=== PATIENT | male | born 1960 | race Caucasian/White ===

== ENCOUNTER 2018-06-24 12:52 | Emergency (ER) | payer BC ==
[2018-06-24 12:59] VITALS: RESP 18
[2018-06-24] MEDS ORDERED: LABETALOL SYRINGE 5 MG/ML IVP STA (13:33)
[2018-06-24 14:07] LABS: Basophils % (A) 1 %; Eosinophils # (A) 0.2 k/uL (0-0.7); Eosinophils % (A) 4 %; HCT 49.4 % (39.0-53.0); Lymphocytes # (A) 1.1 k/uL (1.0-4.8); Lymphocytes % (A) 22 %; MCH 31.9 pg (25.0-35.0); MCHC 34.4 g/dL (31.0-37.0); MCV 92.9 fL (80.0-100.0); Mean Platelet Volume 7.9; Monocytes # (A) 0.3 k/uL (0-1.0); Monocytes % (A) 7 %; Neutrophils # (A) 3.3 k/uL (1.3-7.7); Neutrophils % (A) 65 %; Platelet Count 142 k/uL (150-450); RBC 5.32 m/uL (4.30-5.90); RDW 12.6 % (11.5-15.5); WBC 5.1 k/uL (3.8-10.6)
[2018-06-24 14:23] LABS: ALT 37 U/L (21-72); AST 30 U/L (17-59); Albumin 3.9 g/dL (3.5-5.0); Alkaline Phosphatase 56 U/L (38-126); Anion Gap 8 mmol/L; Blood Urea Nitrogen 23 mg/dL (9-20); Calcium 9.9 mg/dL (8.4-10.2); Carbon Dioxide 21 mmol/L (22-30); Chloride 110 mmol/L (98-107); Glucose 104 mg/dL (74-99); Potassium 4.6 mmol/L (3.5-5.1); Sodium 139 mmol/L (137-145); Total Bilirubin 0.8 mg/dL (0.2-1.3); Total Protein 6.9 g/dL (6.3-8.2)
[2018-06-24 14:25] LABS: Appearance,Urine Clear (Clear); Bilirubin,Urine Negative (Negative); Blood,Urine Negative (Negative); Color,Urine Yellow; Glucose,Urine (UA) Negative (Negative); Ketones,Urine Negative (Negative); Leukocyte Esterase,Urine Negative (Negative); Nitrite,Urine Negative (Negative); Protein,Urine Negative (Negative); Specific Gravity,Urine 1.019 (1.001-1.035)
--- NOTE | 2018-06-24 14:26 | XR ---
EXAMINATION TYPE: XR chest 2V DATE OF EXAM: 06/24/2018 COMPARISON: NONE HISTORY: Hypertension with chest pain. TECHNIQUE: Frontal and lateral views of the chest are obtained. FINDINGS: There is suspected mild underlying emphysematous change with patchy left basilar linear sca rring and/or atelectasis. There is no suspicious focal air space opacity, pleural effusion, or pneumo thorax seen. The cardiac silhouette size is within normal limits with atherosclerotic change in aort ic knob. The osseous structures are intact. IMPRESSION: No acute cardiopulmonary process.
[2018-06-24] MEDS ORDERED: amLODIPine 5 MG TAB PO STA (15:09)
--- NOTE | 2018-06-24 15:16 | ED ---
General Adult HPI - General Chief complaint: Recheck/Abnormal Lab/Rx Stated complaint: HYPERTENSION Time Seen by Provider: 06/24/18 13:11 Source: patient, RN notes reviewed Mode of arrival: ambulatory Limitations: no limitations - History of Present Illness Initial comments: 57-year-old male presents to the emergency department for a chief complaint of high blood pressure. Patient states he was seen by his primary care provider yesterday and given losartan 50 mg. Patient states that today he was at the dentist and his blood pressure was too high for them to the procedure. He called his primary recommended he come to the emergency department. Patient states he is feeling his normal self. He denies any headache, chest pain, shortness of breath, abdominal pain, back pain, dizziness. Patient states he feels absolutely fine and is only here because his primary care told him to come. Patient has no other complaints at this time including shortness of breath , chest pain, abdominal pain, nausea or vomiting, headache, or visual changes. - Related Data Home Medications Medication Instructions Recorded Confirmed Ibuprofen [Motrin] 800 mg PO DAILY PRN 06/24/18 06/24/18 Losartan Potassium 50 mg PO DAILY 06/24/18 06/24/18 Previous Rx's Medication Instructions Recorded amLODIPine [Norvasc] 5 mg PO DAILY #12 tab 06/24/18 Allergies Allergy/AdvReac Type Severity Reaction Status Date / Time No Known Allergies Allergy Verified 06/24/18 12:59 Review of Systems ROS Statement: Those systems with pertinent positive or pertinent negative responses have been documented in the HPI. ROS Other: All systems not noted in ROS Statement are negative. Past Medical History Past Medical History: Hypertension History of Any Multi-Drug Resistant Organisms: None Reported Past Surgical History: Hernia Repair Past Psychological History: No Psychological Hx Reported Smoking Status: Former smoker Past Alcohol Use History: Occasional Past Drug Use History: Marijuana General Exam Limitations: no limitations General appearance: alert, in no apparent distress Head exam: Present: atraumatic, normocephalic, normal inspection Eye exam: Present: normal appearance, PERRL, EOMI. Absent: scleral icterus, conjunctival injection, periorbital swelling ENT exam: Present: normal exam, normal oropharynx, mucous membranes moist, normal external ear exam Neck exam: Present: normal inspection, full ROM. Absent: tenderness, meningismus, lymphadenopathy Respiratory exam: Present: normal lung sounds bilaterally. Absent: respiratory distress, wheezes, rales, rhonchi, stridor Cardiovascular Exam: Present: regular rate, normal rhythm, normal heart sounds. Absent: systolic murmur, diastolic murmur, rubs, gallop, clicks Neurological exam: Present: alert, oriented X3, CN II-XII intact Psychiatric exam: Present: normal affect, normal mood Course Vital Signs 06/24/18 06/24/18 06/24/18 12:56 14:01 14:08 Temperature 97.9 F Pulse Rate 77 71 Respiratory 18 18 Rate Blood Pressure 206/114 195/99 160/99 O2 Sat by Pulse 98 93 L Oximetry 06/24/18 06/24/18 06/24/18 15:14 16:03 16:15 Temperature 98.3 F Pulse Rate 64 58 L Respiratory 18 18 Rate Blood Pressure 167/97 155/97 O2 Sat by Pulse 93 L 95 Oximetry Medical Decision Making - Medical Decision Making 57-year-old male presents to the emergency department for a chief complaint of hypertension. Patient was started on losartan yesterday. He denies any symptoms stating he is only here because his primary care told him to come when he called him. Patient unsure why his blood pressure was at the dentist office. Patient is asymptomatic. CBC CMP unremarkable. Urine negative. Chest x-ray shows no acute cardiopulmonary process but there is mild underlying erythematous changes. Patient was given labetalol. Pressure initially 206/114 which did decrease consistently to 155/97. Apparently losartan has a recall, patient was given Norvasc instead. Discussed taking 5 mg daily and if patient has high blood pressure later in the day after one dose he can take 2 doses. Discussed follow-up with primary care as soon as he is able. Discussed returning here if he has any symptoms such as headache, chest pain, shortness of breath, abdominal pain, or back pain. Patient agrees with this and states he is ready to go home. - Lab Data Result diagrams: 06/24/18 13:48 06/24/18 13:48 Lab Results 06/24/18 06/24/18 06/24/18 Range/Units 13:48 13:48 13:56 WBC 5.1 (3.8-10.6) k/uL RBC 5.32 (4.30-5.90) m/uL Hgb 17.0 (13.0-17.5) gm/dL Hct 49.4 (39.0-53.0) % MCV 92.9 (80.0-100.0) fL MCH 31.9 (25.0-35.0) pg MCHC 34.4 (31.0-37.0) g/dL RDW 12.6 (11.5-15.5) % Plt Count 142 L (150-450) k/uL Neutrophils % 65 % Lymphocytes % 22 % Monocytes % 7 % Eosinophils % 4 % Basophils % 1 % Neutrophils # 3.3 (1.3-7.7) k/uL Lymphocytes # 1.1 (1.0-4.8) k/uL Monocytes # 0.3 (0-1.0) k/uL Eosinophils # 0.2 (0-0.7) k/uL Basophils # 0.0 (0-0.2) k/uL Sodium 139 (137-145) mmol/L Potassium 4.6 (3.5-5.1) mmol/L Chloride 110 H (98-107) mmol/L Carbon Dioxide 21 L (22-30) mmol/L Anion Gap 8 mmol/L BUN 23 H (9-20) mg/dL Creatinine 0.97 (0.66-1.25) mg/dL Est GFR (CKD-EPI)AfAm >90 (>60 ml/min/1.73 sqM) Est GFR (CKD-EPI)NonAf 86 (>60 ml/min/1.73 sqM) Glucose 104 H (74-99) mg/dL Calcium 9.9 (8.4-10.2) mg/dL Total Bilirubin 0.8 (0.2-1.3) mg/dL AST 30 (17-59) U/L ALT 37 (21-72) U/L Alkaline Phosphatase 56 (38-126) U/L Total Protein 6.9 (6.3-8.2) g/dL Albumin 3.9 (3.5-5.0) g/dL Urine Color Yellow Urine Appearance Clear (Clear) Urine pH 6.0 (5.0-8.0) Ur Specific Bailey 1.019 (1.001-1.035) Urine Protein Negative (Negative) Urine Glucose (UA) Negative (Negative) Urine Ketones Negative (Negative) Urine Blood Negative (Negative) Urine Nitrite Negative (Negative) Urine Bilirubin Negative (Negative) Urine Urobilinogen 2.0 (<2.0) mg/dL Ur Leukocyte Esterase Negative (Negative) Disposition Clinical Impression: Hypertension Disposition: HOME SELF-CARE Condition: Good Additional Instructions: Please follow up with primary care in 1-2 days. Please return to the emergency department if you have any chest pain, headache, shortness of breath, abdominal pain or any other symptoms. Prescriptions: amLODIPine [Norvasc] 5 mg PO DAILY #12 tab Is patient prescribed a controlled substance at d/c from ED?: No Referrals: Ariel Morfin MD [Primary Care Provider] - 1-2 days Time of Disposition: 15:18
[2018-06-24] MEDS ORDERED: hydrALAZINE HCL 20 MG/ML 1 ML VIAL IVP STA ×2 (15:31→15:35)
[2018-06-24 16:06] VITALS: BP 155/97; PULSE 58
[2018-06-24 16:17] VITALS: TEMP 98.3
== END 2018-06-24 16:21 | disposition home or self-care (01) ==
LOC: EC 12:52
DX: I10 Essential (primary) hypertension (principal); R91.8 Other nonspecific abnormal finding of lung field; Z87.891 Personal history of nicotine dependence; Z79.899 Other long term (current) drug therapy; Z53.8 Procedure and treatment not carried out for other reasons
CPT/HCPCS: 36415; 71046; 80053; 81003; 85025; 93005; 96374; 99284

== ENCOUNTER 2018-07-21 09:14 | Inpatient (IN) | payer BC ==
[~2018-07-21 09:14] MED LIST: LIDOCAINE 1% INJ 10MG/ML (20 ML MDV) ONE; MIDAZOLAM 2 MG/2 ML VIAL ONE; PROPOFOL 10 MG/ML 20 ML VIAL IV ONE; fentaNYL (PF) 50 MCG/ML 2 ML AMP ONE
--- NOTE | 2018-07-21 09:47 | ED ---
General Adult HPI - General Chief complaint: Extremity Injury, Lower Stated complaint: LEG PAIN, FALL Time Seen by Provider: 07/21/18 09:22 Source: patient, RN notes reviewed Mode of arrival: wheelchair Limitations: no limitations - History of Present Illness Initial comments: 57-year-old male presents emergency Department with chief complaint of fall, right ankle injury. Patient states she was walking in his driveway slipped on some ice. Patient states that he twisted his ankle and felt it snap. Patient states he cannot get his boot off. Patient denies any head injury no loss conscious. Patient does not have a current orthopedic doctor denies any prior right foot and ankle injuries. - Related Data Home Medications Medication Instructions Recorded Confirmed Ibuprofen [Motrin] 800 mg PO DAILY PRN 06/24/18 07/21/18 Previous Rx's Medication Instructions Recorded amLODIPine [Norvasc] 5 mg PO DAILY #12 tab 06/24/18 Allergies Allergy/AdvReac Type Severity Reaction Status Date / Time No Known Allergies Allergy Verified 07/21/18 09:59 Review of Systems ROS Statement: Those systems with pertinent positive or pertinent negative responses have been documented in the HPI. ROS Other: All systems not noted in ROS Statement are negative. Past Medical History Past Medical History: Hypertension History of Any Multi-Drug Resistant Organisms: None Reported Past Surgical History: Hernia Repair Past Psychological History: No Psychological Hx Reported Smoking Status: Former smoker Past Alcohol Use History: Occasional Past Drug Use History: Marijuana General Exam Limitations: no limitations General appearance: alert, in no apparent distress Head exam: Present: atraumatic, normocephalic, normal inspection Respiratory exam: Present: normal lung sounds bilaterally. Absent: respiratory distress, wheezes, rales, rhonchi, stridor Cardiovascular Exam: Present: regular rate, normal rhythm, normal heart sounds. Absent: systolic murmur, diastolic murmur, rubs, gallop, clicks Extremities exam: Present: other (Right ankle moderate swelling, mild deformity noted, severe times with palpation, no right foot tenderness Refill less than 2 seconds of all digits neurovascular intact no proximal tib-fib tenderness no right hip tenderness) Skin exam: Present: warm, dry, intact, normal color. Absent: rash Course Vital Signs 07/21/18 09:15 Temperature 97.8 F Pulse Rate 74 Respiratory 18 Rate Blood Pressure 147/75 O2 Sat by Pulse 100 Oximetry Procedures - Orthopedic Splinting/Casting Injury #1 Side: right Upper Extremity Immobilizer: synthetic pre-padded splint Lower Extremity Injury Location: short leg, ankle Medical Decision Making - Medical Decision Making 57-year-old male present emergency department for right ankle injury. Patient is a trimalleolar fracture. Case discussed with Dr. Selby's LINH Aaron patient will be admitted for surgery. Disposition Clinical Impression: Trimalleolar fracture of ankle, closed Disposition: ADMITTED IP TO THIS [facility] Condition: Stable Referrals: Ariel Morfin MD [Primary Care Provider] - 1-2 days
--- NOTE | 2018-07-21 10:19 | XR ---
EXAMINATION TYPE: XR ankle complete RT DATE OF EXAM: 07/21/2018 COMPARISON: NONE HISTORY: 57-year-old male with pain/deformity TECHNIQUE: 3 views FINDINGS: There is a mildly comminuted, displaced fracture of the distal fibular shaft with one shaft's width o f lateral displacement. Posterior malleolar fracture shows 7 mm of displacement. There appears to be a subtle fracture lucency at the medial malleolus. Soft tissue swelling IMPRESSION: Unstable trimalleolar ankle fractures.
[2018-07-21] MEDS ORDERED: HYDROmorphone 1 MG/ML 1 ML SYRINGE IVP STA (10:26)
[2018-07-21] MEDS ORDERED: LORazepam 2 MG/ML INJ IV STA (10:28)
--- NOTE | 2018-07-21 11:39 | XR ---
EXAMINATION TYPE: XR ankle limited RT DATE OF EXAM: 07/21/2018 COMPARISON: NONE HISTORY: 57-year-old male pain, attempted postreduction of ankle TECHNIQUE: 2 views FINDINGS: Similar mild displacement of the posterior malleolar ankle fracture fragment and one shafts width of displacement of the distal fibular shaft fracture fragment. Nondisplaced medial malleolus fracture fr agment also noted. IMPRESSION: Relatively unchanged alignment of the unstable trimalleolar ankle fractures.
[2018-07-21] MEDS ORDERED: NALOXONE 0.4 MG/ML 1 ML VIAL IV PRN (13:13)
[2018-07-21] MEDS ORDERED: HYDROmorphone 0.5 MG/0.5 ML SYRINGE IVP PRN (13:13)
[2018-07-21] MEDS ORDERED: ONDANSETRON 4 MG/2 ML VIAL IVP PRN (13:13)
--- NOTE | 2018-07-21 13:44 | CT ---
EXAMINATION TYPE: CT ankle RT wo con DATE OF EXAM: 07/21/2018 COMPARISON: Radiograph same day HISTORY: 57-year-old male with pain after Slip and fall TECHNIQUE: Contiguous axial scanning of the right ankle without IV contrast. Coronal and sagittal rec onstructions performed. 3-D reconstructions generated on a dedicated workstation. CT DLP: 404.2 mGycm Automated exposure control for dose reduction was used. FINDINGS: There is an oblique fracture of the distal fibular shaft with mild comminution, anterior apex angulat ion, and 9 mm of posterior displacement. The posterior malleolar fracture fragment measures 2.2 cm cranial caudal by 1.0 cm AP by 2.5 cm wide. It shows posterior displacement by up to 1.2 cm (axial image 56) and mild proximal migration due to impaction injury. Impacted articular surface fracture of the posterior tibia measuring 8 mm AP and 2.8 cm wide at the m argin of the posterior malleolus fracture. This is secondary to pronounced posterior tibial talar sena nt subluxation. Refer to sagittal image 24 for example. There is widening at the medial clear space with small bone fragments measuring up to 6 mm in the obl ique fracture of the medial malleolus displaced by approximately 5 mm proximally. The tibiotalar joint effusion and extensive soft tissue swelling IMPRESSION: 1. UNSTABLE TRIMALLEOLAR ANKLE FRACTURES DETAILED ABOVE. THERE IS A MINIMALLY DISPLACED OBLIQUE ME DIAL MALLEOLAR FRACTURE AND AT LEAST PARTIAL AVULSION INJURY OF THE DELTOID LIGAMENT 2. DISTAL FIBULAR SHAFT FRACTURE SHOWS ANTERIOR APEX ANGULATION AND 9 MM OF DISPLACEMENT. 3. IN ADDITION TO THE POSTERIOR MALLEOLAR FRACTURE FRAGMENT DISPLACED BY 1.2 CM, THERE IS AN IMPACTIO N FRACTURE OF THE POSTERIOR TIBIAL ARTICULAR SURFACE MEASURING 8 MM AP AND 2.8 CM WIDE SECONDARY TO P RONOUNCED POSTERIOR TIBIOTALAR JOINT SUBLUXATION.
[2018-07-21] MEDS: HYDROmorphone 1 MG/ML 1 ML SYRINGE IVP PRN ×2 (17:23→23:34)
--- NOTE | 2018-07-21 17:33 | P.HPOR ---
History of Present Illness H&P Date: 07/21/18 This patient is a 57 year old male with a past medical history of hypertension presented to the emergency department today for complaints of right ankle pain status post a fall. The patient states he was walking outside when he slipped on the ice and felt immediate pain in the right ankle. He states he heard a snapping and popping in the ankle. He states that the swelling was severe and he was unable to take his boot off. Patient was found to have a right trimalleolar ankle fracture upon presentation to the ED, reduction was attempted in the ED, but was unsuccessful. Currently, patient states his pain is well-controlled in the right ankle. Patient denies injury anywhere else in the body. He does note that he has a meniscus injury of the left knee, that he is being followed as an outpatient for by Dr. Morfin. He recently received a cortisone injection into the left knee for treatment. Patient has no other complaints at this time. Review of Systems Please see HPI. Past Medical History Past Medical History: Hypertension History of Any Multi-Drug Resistant Organisms: None Reported Past Surgical History: Hernia Repair Past Psychological History: No Psychological Hx Reported Smoking Status: Former smoker Past Alcohol Use History: Occasional Past Drug Use History: Marijuana Medications and Allergies Home Medications Medication Instructions Recorded Confirmed Type Ibuprofen [Motrin] 800 mg PO DAILY PRN 06/24/18 07/21/18 History amLODIPine [Norvasc] 5 mg PO DAILY #12 tab 06/24/18 07/21/18 Rx Allergies Allergy/AdvReac Type Severity Reaction Status Date / Time No Known Allergies Allergy Verified 07/21/18 09:59 Physical Examination On examination the patient is sitting up in bed in no acute distress. His is bedside. Patient is alert and oriented 3. His breathing is symmetric and nonlabored. His head is atraumatic and normocephalic. On inspection of the right lower extremity, there is a posterior splint in place. The splint is clean dry and intact. The splint is taken down, and reveals very mild swelling of the right ankle. There is no erythema, ecchymosis, or skin discoloration. Patient is able to wiggle his right toes without issue. Sensation is intact is intact to the dorsal and plantar foot, as well as the first dorsal webspace. The foot is warm and well-perfused with brisk capillary refill of the right great toe. Results Right ankle xray 07/21/18: Trimalleolar ankle fracture Right ankle CT 07/21/18: Unstable trimalleolar ankle fracture Assessment and Plan Assessment: Right trimalleolar ankle fracture Plan: - Pending consent, we will plan on a closed reduction versus open reduction internal fixation of the right ankle with Dr. Selby this evening. - Patient is to remain strictly nonweightbearing of the right lower extremity. Ice and elevation of the right lower extremity to decrease pain and swelling. - NPO diet. Continue pain management. Patient discussed with Dr. Selby.
[2018-07-21] MEDS ORDERED: SENNOSIDES-DOCUSATE SODIUM 1 EACH TAB PO PRN (19:23)
[2018-07-21] MEDS ORDERED: hydrOXYzine PAMOATE 25 MG CAP PO PRN (19:23)
[2018-07-21] MEDS ORDERED: HYDROcodone/APAP 5-325MG 1 EACH TAB PO PRN ×2 (19:23)
[2018-07-21] MEDS ORDERED: LACTATED RINGERS 1,000 ML IV ONE (19:52)
--- NOTE | 2018-07-21 20:48 | P.OP ---
Date of Procedure: 07/21/18 Preoperative Diagnosis: 1. Closed right trimalleolar ankle fracture Postoperative Diagnosis: Same Procedure(s) Performed: Closed reduction and application of short leg splint of unstable trimalleolar ankle fracture as part of a staged procedure Anesthesia: CESAR Surgeon: Alcides Selby Gas Flow Regulator #1: Ira Warren Pathology: none sent Condition: stable Disposition: PACU Indications for Procedure: The patient is very pleasant. She'll be 57-year-old male who sustained an isolated injury to his right ankle earlier this morning. The patient was unable to walk and there is a gross deformity at the ankle. He was brought to the emergency department our facility where conscious sedation and 3 attempts were made at closed reduction. The ER doctor was unable to satisfactorily reduce the ankle. He contacted me stating that the ankle was "irreducible." A computed tomography scan was obtained which showed posterior subluxation of the talus out of the ankle mortise and complete displacement of the distal fragment. I recommended admitting the patient and performing a closed reduction and splinting versus open reduction internal fixation later this afternoon. I met with the patient and his prior to surgery to discuss treatment. Prior to surgery there was minimal swelling in the ankle. Due to previously scheduled surgeries and several add-on trauma cases I was unable to obtain a room for several hours. We discussed that if the ankle still had minimal swelling and wrinkling of the skin I would perform definitive fixation but if the ankle was too swollen and the ankle was able to be reduced I would place a splint temporizing the fracture and come back to fix it at a later date. The patient and his understand all the potential risks and complications of the above-mentioned procedure. Description of Procedure: The patient was identified in preoperative holding and the correct right ankle was marked with my initials. I reviewed the consent form with the patient and all of his questions were answered. The patient was then brought back to the operating room by anesthesia. He was positioned on the OR table where general anesthetic was administered. Once the patient was under anesthesia a timeout was performed identifying the correct patient, operative extremity, and procedure. The splint was taken down and the leg was inspected. There is tense swelling throughout the ankle and no wrinkling of the skin. A gentle closed reduction was performed using the Valerie maneuver. The ankle was easily reduced and the ankle mortise was intact. Due to the patient's tense swelling and easily reduced ankle I elected to postpone surgery. A well-padded bulky [place] splint was placed with a varus mold. Final fluoroscopic images in the splint were taken showing a concentrically reduced ankle mortise. The patient was then awoken from his anesthetic, transferred to a gurney, and brought to PACU having toweled procedure well. Plan: The patient is going to discharge home tonight. He is to remain strictly nonweightbearing on his right ankle. He is to ice and elevate to help with swelling resolution. We will see him in the office next Saturday to discuss definitive surgery later next week once his swelling has resolved.
[2018-07-21 23:12] VITALS: RESP 16
[2018-07-21] MEDS: LACTATED RINGERS 1,000 ML IV SCH (23:34)
[2018-07-21 23:38] LABS: Basophils % (A) 0 %; Eosinophils % (A) 0 %; HCT 43.7 % (39.0-53.0); HGB 14.8 gm/dL (13.0-17.5); Lymphocytes # (A) 0.7 k/uL (1.0-4.8); Lymphocytes % (A) 9 %; MCH 32.2 pg (25.0-35.0); MCHC 33.8 g/dL (31.0-37.0); MCV 95.4 fL (80.0-100.0); Mean Platelet Volume 7.7; Monocytes # (A) 0.4 k/uL (0-1.0); Monocytes % (A) 5 %; Neutrophils # (A) 6.8 k/uL (1.3-7.7); Neutrophils % (A) 85 %; Platelet Count 141 k/uL (150-450); RBC 4.58 m/uL (4.30-5.90); RDW 12.5 % (11.5-15.5)
[2018-07-22] MEDS ORDERED: ceFAZolin IN SWFI 2 GM/20 ML SYRINGE IVP SCH
--- NOTE | 2018-07-22 07:24 | FL ---
EXAMINATION TYPE: FL guidance operating room DATE OF EXAM: 07/21/2018 CLINICAL HISTORY: Closed reduction internal fixation of the right ankle with fluoroscopic guidance TECHNIQUE: Fluoroscopy. COMPARISON: None. FINDINGS: Fluoroscopic guidance was provided during procedure performed by Dr. Selby. A total of 21 seconds of fluoroscopic time was utilized during the procedure and 4 spot images was acquired dur ing closed reduction internal fixation of the right ankle. IMPRESSION: As Above.
[2018-07-22 07:33] VITALS: BP 129/80; PULSE 81; TEMP 99
[2018-07-22] MEDS: LACTATED RINGERS 1,000 ML IV SCH (08:14)
[2018-07-22] MEDS ORDERED: ENOXAPARIN 40 MG/0.4 ML SYRINGE SQ SCH (09:00)
--- NOTE | 2018-07-22 09:33 | P.DS ---
Providers Date of admission: 07/21/18 13:41 Expected date of discharge: 07/22/18 Attending physician: Alcides Selby Primary care physician: Ariel Corona [facility] Course: This patient is a 47-year-old male with a past medical history of hypertension that presented to the emergency department on 07/21/2018 with complaints of right ankle pain following a fall. On presentation to the ED, the patient was found to have an unstable trimalleolar ankle fracture. There were efforts to reduce the ankle in the ED, without success. A computed tomography scan was obtained which showed a posterior subluxation of the talus out of the ankle mortise and a complete displacement of the distal fragment. The patient was admitted for orthopedic evaluation. Patient was taken to the OR on 07/21/[address] Selby for a closed reduction and application of short leg splint. Patient was kept overnight for pain control. The procedure was performed without complication or sequelae. The patient is doing well this morning. Vital signs are stable on the date of discharge. Patient is examined bedside. Currently he states his pain is well-controlled. He states he was up with therapy walking the halls while remaining nonweightbearing on the right lower extremity. He denies any new complaints today. On inspection of the right lower extremity, there is a bulky Greenwood splint placed. Splint is clean, dry, intact. Patient is able to wiggle his toes without issue. His toes are warm and well perfused with brisk capillary refill. Sensation is intact to light touch of the plantar and dorsal toes. Patient is discharged to home in good condition. He will follow-up in [address] Selby in the office for a soft tissue inspection and surgical planning. Pertinent Studies: Right ankle x-ray 07/21/2018: Unstable trimalleolar ankle fracture Right ankle CT 07/21/2018: Unstable trimalleolar ankle fracture with pronounced posterior tibiotalar joint subluxation Patient Condition at Discharge: Stable Plan - Discharge Summary New Discharge Prescriptions: New Docusate [Colace] 100 mg PO BID #60 capsule Hydrocodone/Acetaminophen [[place] 5-325] 1 - 2 tab PO Q4-6H PRN #40 tab PRN Reason: Pain No Action Ibuprofen [Motrin] 800 mg PO DAILY PRN PRN Reason: Pain amLODIPine [Norvasc] 5 mg PO DAILY #12 tab Discharge Medication List Ibuprofen [Motrin] 800 mg PO DAILY PRN 06/24/18 [History] amLODIPine [Norvasc] 5 mg PO DAILY #12 tab 06/24/18 [Rx] Docusate [Colace] 100 mg PO BID #60 capsule 07/21/18 [Rx] Hydrocodone/Acetaminophen [[place] 5-325] 1 - 2 tab PO Q4-6H PRN #40 tab 07/21/18 [Rx] Follow up Appointment(s)/Referral(s): Ariel Morfin MD [Primary Care Provider] - 1-2 days Alcides Selby MD [Medical Doctor] - 1 Week Patient Instructions/Handouts: *Surgery [facility] - (Anesthesia) Discharge Instructions Outpatient Surgery, Splint Care (DC), Closed Reduction (GEN) Activity/Diet/Wound Care/Special Instructions: -Strict non-weight bearing on your right leg. Do not remove your splint; Keep splint clean, dry, and intact -Use crutches, knee scooter, or a walker to ambulate. -Elevate and ice right leg to help reduce swelling and control pain. -Take pain medications as prescribed. Take Colace as a stool softener. -Follow-up appointment with Dr. Selby in the office in 1 week. -Call the office with any questions or concerns, Discharge Disposition: HOME SELF-CARE
== END 2018-07-22 10:36 | disposition home or self-care (01) | DRG 563 ==
LOC: EC 09:14 → 4MS4W 13:41
PROVIDERS: ADMIT Orthopaedic Surgery; ATTEND Orthopaedic Surgery
PROC: 0QSGXZZ Reposition Right Tibia, External Approach (ICD-10-PCS; 2018-07-21)
PROC: 0QSGXZZ Reposition Right Tibia, External Approach (ICD-10-PCS; 2018-07-21)
PROC: 2W3LX1Z Immobilization of Right Lower Extremity using Splint (ICD-10-PCS; 2018-07-21)
PROC: 0QSJXZZ Reposition Right Fibula, External Approach (ICD-10-PCS; principal; 2018-07-21 09:40)
DX: S82.851A Displaced trimalleolar fracture of right lower leg, initial encounter for closed fracture (principal); I10 Essential (primary) hypertension; Z79.899 Other long term (current) drug therapy; Z87.891 Personal history of nicotine dependence; W00.0XXA Fall on same level due to ice and snow, initial encounter; Y93.01 Activity, walking, marching and hiking
CPT/HCPCS: 85025; 96374; 96375; 99284

== ENCOUNTER 2018-08-05 10:48 | Day surgery (SDC) | payer BC ==
[2018-07-29 15:33] VITALS: BMI 25.1
[~2018-08-05 10:48] MED LIST changes: +DEXAMETHASONE SOD PHOSPHATE 10 MG/ML 1 ML VIAL IV ONE; +HYDROmorphone 0.5 MG/0.5 ML SYRINGE IVP PRN; +LACTATED RINGERS 1,000 ML IV SCH; +LIDOCAINE 1% 20 ML VIAL (10MG/ML) FOR IV START INTRADERMA PRN; -LIDOCAINE 1% INJ 10MG/ML (20 ML MDV) ONE; +MIDAZOLAM 2 MG/2 ML VIAL IV PRN; -MIDAZOLAM 2 MG/2 ML VIAL ONE; +ONDANSETRON 4 MG/2 ML VIAL IVP ONE; -PROPOFOL 10 MG/ML 20 ML VIAL IV ONE; +SCOPOLAMINE 1.5MG/72HR PATCH TRANSDERM ONE; +ceFAZolin IN SWFI 2 GM/20 ML SYRINGE IVP ONE; -fentaNYL (PF) 50 MCG/ML 2 ML AMP ONE
[2018-08-05] MEDS ORDERED: PROPOFOL 10 MG/ML 20 ML VIAL IV ONE (12:53)
[2018-08-05] MEDS ORDERED: KETOROLAC 30 MG/ML 1 ML VIAL ONE (12:53)
[2018-08-05] MEDS ORDERED: ROPIVACAINE 5 MG/ML 30 ML VIAL ONE (12:53)
[2018-08-05] MEDS ORDERED: NEOSTIGMINE 1 MG/ML 10 ML VIAL ONE (12:53)
[2018-08-05] MEDS ORDERED: LIDOCAINE 1% INJ 10MG/ML (20 ML MDV) ONE (12:53)
[2018-08-05] MEDS ORDERED: ROCURONIUM BROMIDE 10 MG/ML 10 ML VIAL IV ONE (12:53)
[2018-08-05] MEDS ORDERED: GLYCOPYRROLATE 0.2 MG/ML 2 ML VIAL ONE (12:53)
[2018-08-05] MEDS ORDERED: MIDAZOLAM 2 MG/2 ML VIAL ONE (12:53)
[2018-08-05] MEDS ORDERED: HYDROmorphone (PF) 1 MG/ML ONE (12:53)
[2018-08-05] MEDS ORDERED: fentaNYL (PF) 50 MCG/ML 2 ML AMP ONE (12:53)
[2018-08-05] MEDS ORDERED: LACTATED RINGERS 1,000 ML IV ONE (13:33)
--- NOTE | 2018-08-05 14:35 | P.OP ---
Date of Procedure: 08/05/18 Preoperative Diagnosis: Closed right trimalleolar equivalent ankle fracture dislocation Postoperative Diagnosis: Same Procedure(s) Performed: 1. Open reduction internal fixation of right lateral malleolus fracture 2. Nonoperative management of right posterior malleolus fracture 3. Manual application of joint stress by physician for radiography, right ankle 4. Application of short leg splint by physician, right ankle Anesthesia: CESAR, regional Surgeon: Alcides Selby Manager Eligibility #1: Ira Warren Estimated Blood Loss (ml): 10 IV fluids (ml): 1,200 Pathology: none sent Condition: stable Disposition: PACU Indications for Procedure: The patient is a very pleasant previously healthy 57-year-old male who sustained a fall getting out of his truck 2 weeks ago when he slipped on some ice. He was seen in our ER where closed reduction was attempted but was unsuccessful. He was taken to the operating room by myself for a closed reduction and splinting was performed. He was discharged to follow up as an outpatient. I met with the patient and his in the office to discuss surgical treatment. I recommended open reduction internal fixation of the lateral malleolus and possible open reduction internal fixation of the posterior malleolus. We discussed potential risks and complications of surgery including but not limited to risk of anesthesia, superficial infection, deep infection, delayed wound healing, damage to local blood vessels or nerves, nonunion of the fracture, malunion the fracture, hardware failure, postoperative displacement of the ankle mortise, posttraumatic ankle arthritis, DVT, PE, chronic pain, chronic swelling, and inability to regain preinjury level of function, need for further surgery, and possibly loss of life or limb. The patient and his voiced her understanding of these potential Locations and also Tinel's other complication to possible. They provided their verbal and written consent to go forward with surgery. Description of Procedure: The patient was then prepped holding the correct right ankles marked with my initials. I reviewed the consent form with the patient and his . All their questions were answered. The patient was then brought back to the operating room by anesthesia. He was positioned on the or table where a general anesthetic and preoperative antibiotics were given. A tourniquet was applied the proximal aspect the right leg. A bump was placed under the right buttock internally rotating the leg to neutral. A ramp was placed under the right leg to elevate and facilitate imaging. The left leg was secured to the table with foam and tape. The right leg was then prepped and draped in the standard sterile fashion. Prior to starting surgery timeout was performed identifying the correct patient, operative extremity, and procedure. The patient's leg was then elevated, exsanguinated with an Esmarch bandage, and the tourniquet was inflated to 250 mmHg. I began by outlining a longitudinal incision directly over the lateral aspect distal fibula. Skin incision was made with a scalpel. Dissection was carried down carefully to the subcutaneous tissue with tenotomy scissors. I sharply elevated the periosteum over the fibula distally in the fascia over the peroneal muscles proximally. The fracture site was immediately visualized and exposed. There was early callus formation which was sharply debrided with a scalpel to allow a cortical read on our reduction. There is also soft tissue anterior to the distal fibula and the incisura which was carefully debrided to allow reduction of the fibula and the incisura. A [id number]-[id number] reduction clamp was then used to gently keyed the fractured ends of the fibula together until an anatomic reduction was achieved. There was excellent cortical read visually and on fluoroscopy the fracture appeared to be reduced and out to length. I then placed a nonlocking 2.7 mm lag screw across the fracture generating excellent compression. I then placed a precontoured distal fibular locking plate over the lateral malleolus. A nonlocking 3.5 mm screw was placed just proximal to the fracture bringing the plate down to bone. I then placed an additional nonlocking 3.5 mm screw in the most proximal hole of the plate. Attention was then turned distally. A nonlocking cancellus screw was placed in one of the distal cluster holes to bring the plate down to bone. I then proceeded to place an additional four 3.5 mm locking screws distally. I then placed a third nonlocking 3.5 mm screw proximal to the fracture. Fluoroscopy was brought in to verify reduction of the fracture and ankle mortise and stability of the syndesmosis. Mortise x-rays showed the fibula fracture out to length and the talus anatomically reduced within the ankle mortise. The hardware was in except will position. A manual external rotation stress x-ray was performed and showed no widening of the medial clear space or incisura. Clinically the anterior lip of the incisura as visualized and the fibula appeared to be well centered in the incisura. I interpreted the stress x-rays as stable not requiring syndesmotic fixation. There is also minimal displacement of the posteromedial and posterolateral posterior malleolus fracture which I again elected to treat nonoperatively. A lateral x-ray was obtained. The wound was then copiously irrigated. The fascial layer was closed with a running 0 Vicryl. The deep subcu was reapproximated using 2-0 Vicryl. The skin was closed with a running 3-0 Monocryl subcuticular stitch. I verified that all instrument, sponge, and sharp counts were correct. I then placed a sterile dressing followed by a well-padded bulky [place] splint with the ankle at neutral. The patient was awoken from her anesthetic, transferred to a gurney, and brought back up out of the procedure well. Ira Warren PA-C was required as a skilled customer assistant for patient positioning, surgical exposure, reduction of fracture, placement of hardware, closure of wound, and application of splint. Plan: The patient is going to be given a popliteal and saphenous nerve block in the recovery room. If his pain is adequately controlled he can discharge home with oral pain medications. If his pain is inadequately controlled we will plan on admission overnight for pain control. He'll need to remain strictly nonweightbearing on his right leg. He will follow-up in the office in 2 weeks for x-rays out of the splint and a wound check.
[2018-08-05 14:51] VITALS: TEMP 98
[2018-08-05] MEDS ORDERED: MEPERIDINE 50 MG/ML SYRINGE IVP ONE (14:53)
[2018-08-05] MEDS ORDERED: hydrOXYzine PAMOATE 25 MG CAP PO PRN (14:53)
[2018-08-05] MEDS ORDERED: HYDROmorphone 0.5 MG/0.5 ML SYRINGE IVP PRN ×2 (14:53)
[2018-08-05] MEDS ORDERED: HYDROmorphone 1 MG/ML 1 ML SYRINGE IVP PRN (14:53)
[2018-08-05] MEDS ORDERED: ONDANSETRON 4 MG/2 ML VIAL IVP PRN (14:53)
[2018-08-05] MEDS ORDERED: SENNOSIDES-DOCUSATE SODIUM 1 EACH TAB PO PRN (14:53)
[2018-08-05] MEDS ORDERED: oxyCODONE-APAP 5-325MG 1 EACH TAB PO PRN (14:56)
[2018-08-05] MEDS ORDERED: LACTATED RINGERS 1,000 ML IV SCH (15:00)
--- NOTE | 2018-08-05 15:32 | P.ONQ ---
Anesthesiology Proc Note - PNB - Peripheral Nerve Block Performed Right Adductor Canal Single Time Out Performed: Yes Procedure Start Time: 15:03 Procedure Stop Time: 15:05 Indication: Acute Post-Operative Pain, Analgesia, Requested by physician Sedation Type: Sedate with meaningful contact maintained Preparation: Sterile Prep Position: Supine Catheter: None Needle Types: On-Q Needle Size: 100mm (4") Needle Gauge: 21 Technique: Ultrasound Injectate: 0.5% Ropivacaine (see comment for volume) Blood Aspirated: No Pain Paresthesia on Injection Noted: No Resistance on Injection: Normal Events: Uneventful and Well Tolerated
--- NOTE | 2018-08-05 15:33 | P.ONQ ---
Anesthesiology Proc Note - PNB - Peripheral Nerve Block Performed Right Popliteal Single Time Out Performed: Yes Procedure Start Time: 15:08 Procedure Stop Time: 15:13 Indication: Acute Post-Operative Pain, Analgesia, Requested by physician Sedation Type: Sedate with meaningful contact maintained Preparation: Sterile Prep Position: Supine Catheter: None Needle Types: On-Q Needle Size: 100mm (4") Needle Gauge: 21 Injectate: 0.5% Ropivacaine (see comment for volume) Blood Aspirated: No Pain Paresthesia on Injection Noted: No Resistance on Injection: Normal Events: Uneventful and Well Tolerated
--- NOTE | 2018-08-05 15:47 | FL ---
Fluoroscopy HISTORY: Fracture 1 minute 28 seconds fluoroscopy time supplied to the referring clinician. 4 intraoperative C-arm maria luisa ges document the procedure. See dictated report from orthopedic surgery.
[2018-08-05 15:51] VITALS: RESP 18
[2018-08-05] MEDS ORDERED: ceFAZolin IN SWFI 2 GM/20 ML SYRINGE IVP SCH (16:00)
--- NOTE | 2018-08-05 16:05 | XR ---
EXAMINATION TYPE: XR ankle limited RT DATE OF EXAM: 08/05/2018 COMPARISON: NONE HISTORY: 57-year-old male right ankle fracture TECHNIQUE: Intraoperative fluoroscopy FINDINGS: 1 minute 28 seconds was used during intraoperative fluoroscopy for right ankle fracture. 4 images in the AP, oblique, and lateral projection during placement of sideplate and screw fixation along the di stal fibula. IMPRESSION: Intraoperative fluoroscopy as above.
[2018-08-05 16:41] VITALS: PULSE 85
[2018-08-05 17:12] VITALS: BP 139/77
[2018-08-06] MEDS ORDERED: ENOXAPARIN 40 MG/0.4 ML SYRINGE SQ SCH (09:00)
== END 2018-08-05 17:21 | disposition home or self-care (01) ==
LOC: OR 10:48 → EDSTATUS 12:30 → OR 17:21
PROVIDERS: ATTEND Orthopaedic Surgery
DX: S82.851A Displaced trimalleolar fracture of right lower leg, initial encounter for closed fracture (principal); W00.2XXA Other fall from one level to another due to ice and snow, initial encounter; Y92.009 Unspecified place in unspecified non-institutional (private) residence as the place of occurrence of the external cause; I10 Essential (primary) hypertension; Z87.891 Personal history of nicotine dependence; Z79.1 Long term (current) use of non-steroidal anti-inflammatories (NSAID); Z79.899 Other long term (current) drug therapy
CPT/HCPCS: 27822; 64447; 64450; 73600; C1713; J2250; J1100; J2710; J2175; J2405; J2001; J3010; J1885; J1170; J2795; J2704; J0690